=== PATIENT | male | born 1965 | race Two or more races ===

== ENCOUNTER → 2020-09-04 | Outpatient (CLI) | payer SELFPAY ==
[~2020-09-04] MED LIST: ACET650T12 PO; CRES20TA2 PO; IBUPOTC PO; MULT1TAB8 PO; VITATAB11 PO
== END ==
LOC: M LABSMTC 14:16
PROVIDERS: ATTEND Pediatrics
DX: Z20.828 Contact with and (suspected) exposure to other viral communicable diseases (principal)

== ENCOUNTER 2022-01-14 14:01 | Emergency (ER) | payer OTHER, SELFPAY ==
[~2022-01-14] VITALS: Ht 170.2 cm; Wt 70.0 kg
[2022-01-14 14:02] VITALS: BP 133/65
[2022-01-14] MEDS ORDERED: ROSU40TA4 (14:15)
[2022-01-14] MEDS ORDERED: NEOSPORIN OINT 0.9 GM PKT TOP ONE (15:30)
[2022-01-14] MEDS ORDERED: AMOX875T2 PO (15:30)
[2022-01-14] MEDS ORDERED: BOOSTRIX/ADACEL VACCINE (DIPHTH/PERTUSS/ACELL/TETANUS) 0.5ML SYR IM ONE (15:30)
== END 2022-01-14 15:42 | disposition home or self-care (01) ==
LOC: M ED 14:01
DX: S60.512A Abrasion of left hand, initial encounter (principal); W54.0XXA Bitten by dog, initial encounter; Y92.9 Unspecified place or not applicable; Y93.9 Activity, unspecified; Y99.0 Civilian activity done for income or pay; Z79.899 Other long term (current) drug therapy

== ENCOUNTER → 2023-04-12 | Outpatient (CLI) | payer OTHER ==
[~2023-04-12] MED LIST changes: +AMOX875T2 PO; +ROSU40TA4
== END ==
LOC: M WUC 13:13
PROVIDERS: ATTEND Nurse Practitioner Adult Health
DX: R06.02 Shortness of breath (principal); R05.9 Cough, unspecified

== ENCOUNTER → 2024-02-21 | Outpatient (CLI) | payer OTHER ==
[~2024-02-21] MED LIST changes: -ROSU40TA4; +ROSU40TA63
== END ==
LOC: M CARPUL 08:02
PROVIDERS: ATTEND Internal Medicine
DX: R01.1 Cardiac murmur, unspecified (principal)

== ENCOUNTER → 2024-08-11 | Outpatient (CLI) | payer OTHER ==
[~2024-08-11] MED LIST changes: -ROSU40TA63; +ROSU40TA81
== END ==
LOC: M SLEEP 20:00
PROVIDERS: ATTEND Nurse Practitioner Adult Health
DX: G47.33 Obstructive sleep apnea (adult) (pediatric) (principal)

== ENCOUNTER 2025-06-21 07:34 | Day surgery (SDC) | payer OTHER ==
[~2025-06-21] VITALS: Ht 170.2 cm; Wt 70.3 kg
[~2025-06-21 07:34] MED LIST changes: +ACET-897 PO; -ROSU40TA81; +ROSU40TA81 PO; +THERTAB52 PO
[2025-06-21] MEDS ORDERED: LIDOCAINE 2% 100 MG/5 ML SDV (FOR ANES.) As Ordered ONE (08:40)
[2025-06-21 08:44] VITALS: TEMP 98
[2025-06-21 09:13] VITALS: BP 172/81; O2SAT 99
== END 2025-06-21 09:24 | disposition home or self-care (01) ==
LOC: M OPP 07:34
PROVIDERS: ATTEND Surgery
DX: Z12.11 Encounter for screening for malignant neoplasm of colon (principal); D12.6 Benign neoplasm of colon, unspecified; G47.30 Sleep apnea, unspecified; Z79.899 Other long term (current) drug therapy; F17.220 Nicotine dependence, chewing tobacco, uncomplicated